=== PATIENT | male | born 1985 | race Caucasian/White ===

== ENCOUNTER 2020-05-31 13:45 | Emergency (ER) | payer SELFPAY ==
[~2020-05-31] VITALS: Ht 172.7 cm; Wt 87.9 kg
[2020-05-31] MEDS ORDERED: BACITRACIN ZINC OINT UDPKT TOP ONE (14:45)
[2020-05-31 14:52] VITALS: BP 113/78
== END 2020-05-31 14:54 | disposition home or self-care (01) ==
LOC: EDBD 13:45 → ER 13:45
DX: S81.812D Laceration without foreign body, left lower leg, subsequent encounter (principal); X58.XXXD Exposure to other specified factors, subsequent encounter
CPT/HCPCS: 99282